=== PATIENT | female | born 1960 | race Caucasian/White ===

== ENCOUNTER 2019-07-27 15:07 | Emergency (ER) | payer MEDICARE ==
[2019-07-27 15:22] VITALS: BP 144/102
--- NOTE | 2019-07-27 15:36 | ED ---
Psychiatric Complaint - HPI Summary HPI Summary: The patient is a 59 y/o F presenting to [facility] with a chief complaint of depression with suicidality and plan gradually worsening. She reports that she is currently homeless because she has been unable to find a place to live other than the correction because she has been labeled as having schizophrenia and bipolar disorder, although she denies this. She also states suicidal ideation because she has been unable to keep her money that she receives from social security because she does not have a place to live. She has a plan to jump off a ridge into a waterfall. She is not in any pain. PMHx: questionable bipolar disorder and schizophrenia. Current every day smoker, weekly EtOH (three drinks today), no substance use. Medications reviewed. Allergies noted. - History Of Current Complaint Chief Complaint: EDPsychosocial Hx Obtained From: Patient Onset/Duration: Gradual Onset, Lasting Days, Still Present Timing: Days Severity Initially: Mild Severity Currently: Moderate Character: Depressed Aggravating Factor(s): Recent Stress - in personal life with finances and living situation Alleviating Factor(s): Nothing Related History: Positive For: Prior Psychiatric Issues - bipolar disorder, schizophrenia Has Suicidal: Reports: Thoughts, With A Plan - jumping off a ridge - Allergies/Home Medications Allergies/Adverse Reactions: Allergies Allergy/AdvReac Type Severity Reaction Status Date / Time cephalexin [From Keflex] Allergy Anaphylatic Verified 07/27/19 15:23 Shock PMH/Surg Hx/FS Hx/Imm Hx Endocrine/Hematology History: Denies: Hx Diabetes Cardiovascular History: Denies: Hx Hypercholesterolemia, Hx Hypertension Psychiatric History: Reports: Hx Schizophrenia, Hx Bipolar Disorder - Surgical History Surgical History: None Surgery Procedure, Year, and Place: none Infectious Disease History: No Infectious Disease History: Denies: Traveled Outside the [place] in Last 30 Days - Family History Known Family History: Positive: Other - RA in father Negative: Cardiac Disease, Hypertension, Diabetes - Social History Alcohol Use: Weekly Hx Substance Use: No Substance Use Type: Reports: None Hx Tobacco Use: Yes Smoking Status (MU): Current Every Day Smoker Review of Systems Negative: Fever Psychological: Other - suicidal ideation with a plan Positive: Depressed All Other Systems Reviewed And Are Negative: Yes Physical Exam - Summary Physical Exam Summary: VITAL SIGNS: Reviewed. GENERAL: Patient is a well-developed and nourished female who is lying comfortable in the stretcher. Patient is not in any acute respiratory distress. HEAD AND FACE: No signs of trauma. No ecchymosis, hematomas or skull depressions. No sinus tenderness. EYES: PERRLA, EOMI x 2, No injected conjunctiva, no nystagmus. EARS: Hearing grossly intact. Ear canals and tympanic membranes are within normal limits. MOUTH: Oropharynx within normal limits. NECK: Supple, trachea is midline, no adenopathy, no JVD, no carotid bruit, no c- spine tenderness, neck with full ROM. CHEST: Symmetric, no tenderness at palpation. LUNGS: Clear to auscultation bilaterally. No wheezing or crackles. CVS: Regular rate and rhythm, S1 and S2 present, no murmurs or gallops appreciated. ABDOMEN: Soft, non-tender. No signs of distention. No rebound, no guarding, and no masses palpated. Bowel sounds are normal. EXTREMITIES: FROM in all major joints, no edema, no cyanosis or clubbing. NEURO: Alert and oriented x 3. No acute neurological deficits. Speech is normal and follows commands. SKIN: Dry and warm. PSYCH: Depressed, quiet. States suicidal thoughts without a plan. No homicidal thoughts or plan. No signs of psychosis or pressure speech. No tangential speech. Triage Information Reviewed: Yes Vital Signs On Initial Exam: Initial Vitals Temp Pulse Resp BP Pulse Ox 98.3 F 88 16 144/102 98 07/27/19 15:15 07/27/19 15:15 07/27/19 15:15 07/27/19 15:15 07/27/19 15:15 Vital Signs Reviewed: Yes Procedures - Sedation Patient Received Moderate/Deep Sedation with Procedure: No Diagnostics - Vital Signs Vital Signs Temp Pulse Resp BP Pulse Ox 07/27/19 15:15 98.3 F 88 16 144/102 98 - Laboratory Result Diagrams: 07/27/19 16:06 07/27/19 16:06 Lab Statement: Any lab studies that have been ordered have been reviewed, and results considered in the medical decision making process. Re-Evaluation - Re-Evaluation First Eval Re-Evaluation Time: 16:00 Change: Unchanged Comment: Patient is medically clear for mental health evaluation. Course/Dx - Course Assessment/Plan: Patient is a 59 y/o F who has been diagnosed with schizophrenia and bipolar disorder with a chief complaint of suidicality with a plan for jumping off a ridge onset by her inability to find a home or settle her finances secondary to her diagnoses. Blood work w/o a significant abnormality. She is medically cleared. She is awaiting a MHE. Patient is hemodynamically stable and A+O x 3. Patient is signed out to Dr. Lane at shift change at 1900 on 07/27/19. - Differential Dx/Clinical Impression Provider Diagnosis: Depression Discharge ED - Sign-Out/Discharge Documenting (check all that apply): Sign-Out Patient Signing out patient TO: Jonnathan Lane - Patient is a sign-out to Dr. Jonnathan Lane MD, at 1900 on 07/27/2019, pending MHE and disposition. - Discharge Plan Referrals: Boyd ISAAC,Sonido Angelo [Primary Care Provider] - - Attestation Statements Document Initiated by Gio: Yes Documenting Scribe: Olivia Aden Provider For Whom Gio is Documenting (Include Credential): Dr. Nura Mukherjee MD Scribe Attestation: IOlivia scribed for Dr. Nura Mukherjee MD on 07/27/19 at 1810. Scribe Documentation Reviewed: Yes Provider Attestation: The documentation as recorded by the Olivia tabares accurately reflects the service I personally performed and the decisions made by me, Dr. Nura Mukherjee MD Status of Scribe Document: Ready
[2019-07-27 16:28] LABS: Urine Appearance Clear; Urine Bilirubin Negative (Negative); Urine Blood Negative (Negative); Urine Color Straw; Urine Glucose Negative (Negative); Urine Ketones Negative (Negative); Urine Nitrite Negative (Negative); Urine Protein Negative (Negative); Urine Specific Gravity 1.004 (1.010-1.030); Urine Urobilinogen Negative (Negative)
[2019-07-27 16:40] LABS: ALT 16 U/L (7-52); AST 24 U/L (13-39); Albumin 4.4 g/dL (3.2-5.2); Albumin/Globulin Ratio 1.8 (1-3); Alkaline Phosphatase 60 U/L (34-104); Anion Gap 7 mmol/L (2-11); BUN/Creatinine Ratio 26.5 (8-20); Blood Urea Nitrogen 18 mg/dL (6-24); CO2 Carbon Dioxide 26 mmol/L (22-32); Calcium 9.5 mg/dL (8.6-10.3); Chloride 103 mmol/L (101-111); EGFR African American 106.8 (>60); EGFR Non-African American 88.3 (>60); Globulin 2.4 g/dL (2-4); Glucose 96 mg/dL (70-100); Potassium 4.2 mmol/L (3.5-5.0); Sodium 136 mmol/L (135-145); Total Protein 6.8 g/dL (6.4-8.9)
[2019-07-27 16:46] LABS: ABS Eosinophils 0.1 10^3/ul (0-0.6); ABS Lymphocytes 1.8 10^3/ul (1.0-4.8); ABS Monocytes 0.6 10^3/ul (0-0.8); ABS Neutrophils 4.3 10^3/ul (1.5-7.7); Eosinophil % 1.7 %; Hematocrit 38 % (35-47); Hemoglobin 13.1 g/dL (12.0-16.0); Lymphocyte % 26.3 %; Mean Corpuscular HGB Conc 34 g/dL (31-36); Mean Corpuscular Hemoglobin 32 pg (27-31); Mean Corpuscular Volume 93 fL (80-97); Mean Platelet Volume 8.9 fL (7.4-10.4); Platelet Count 261 10^3/uL (150-450); Red Blood Count 4.12 10^6 /uL (3.70-4.87); Red Cell Distribution Width 14 % (10-15); White Blood Count 6.9 10^3/uL (3.5-10.8)
[2019-07-27 16:47] LABS: Acetaminophen < 15 mcg/mL; Alcohol < 10 mg/dL (<10); Salicylate < 2.50 mg/dL (<30)
[2019-07-27 16:52] LABS: Urine Benzodiazepine Screen None Detected (None Detect); Urine Opiates Screen None Detected (None Detect)
[2019-07-27 16:55] LABS: TSH (Thyroid Stimulating Horm) 1.11 mcIU/mL (0.34-5.60)
--- NOTE | 2019-07-27 19:11 | ED ---
Progress - Progress Note Progress Note: Pt is a sign out from Dr. Mukherjee at 19:00 on 07/27/19; shift change. Pt is pending a MH evaluation disposition. At 22:21, MH cap parts cutter reports that pts case was reviewed by Dr. Tobin who wants to put a MH hold on the pt. Re-Evaluation - Re-Evaluation First Eval Re-Evaluation Time: 16:00 Change: Unchanged Comment: Patient is medically clear for mental health evaluation. Course/Dx - Diagnoses Provider Diagnoses: Depression Discharge ED - Sign-Out/Discharge Documenting (check all that apply): Sign-Out Patient, Receiving Sign-Out Signing out patient TO: Tye Lugo - 07:00 on 07/28/19 Receiving patient FROM: Nura Mukherjee - 19:00 on 07/27/19 - Discharge Plan Condition: Stable Referrals: Boyd ISAAC,Sonido Angelo [Primary Care Provider] - - Billing Disposition and Condition Condition: STABLE - Attestation Statements Document Initiated by Scribe: Yes Documenting Scribe: No Oconnell Provider For Whom Scribe is Documenting (Include Credential): Jonnathan Lane MD Scribe Attestation: I, No Oconnell, scribed for Jonnathan Lane MD on 07/28/19 at 0717. Scribe Documentation Reviewed: Yes Provider Attestation: The documentation as recorded by the joibeNo accurately reflects the service I personally performed and the decisions made by me, Jonnathan Lane MD Status of Scribe Document: Viewed
--- NOTE | 2019-07-28 07:22 | ED ---
Progress - Progress Note Progress Note: This pt is a sign out to Dr. Lugo from Dr. Lane at shift change 0700 07/28 pending a MHE and disposition. - Consult/PCP Time Called: 20:27 Re-Evaluation - Re-Evaluation First Eval Re-Evaluation Time: 16:00 Change: Unchanged Comment: Patient is medically clear for mental health evaluation. Course/Dx - Course Course Of Treatment: This pt is a sign out to Dr. Lugo from Dr. Lane at shift change 0700 07/28/19 pending a MHE and disposition. Pt will be discharged home with a Dx of adjustment with distrubance and mood disconduct by Dr. Tobin. - Diagnoses Provider Diagnoses: Depression - Provider Notifications Discussed Care Of Patient With: Cole Tobin Time Discussed With Above Provider: 08:45 Instructed by Provider To: Other - discharge Discharge ED - Sign-Out/Discharge Documenting (check all that apply): Patient Departure - discharge - Discharge Plan Condition: Stable Disposition: HOME Referrals: Boyd ISAAC,Sonido Angelo [Primary Care Provider] - - Billing Disposition and Condition Condition: STABLE Disposition: Home - Attestation Statements Document Initiated by Scribe: Yes Documenting Scribe: Steven Serrano Provider For Whom Scribe is Documenting (Include Credential): Kun Lugo MD Scribe Attestation: Steven Massey, tiffanieed for Kun Lugo MD on 07/28/19 at 0849. Scribe Documentation Reviewed: Yes Provider Attestation: The documentation as recorded by the Steven tabares accurately reflects the service I personally performed and the decisions made by Kun trinidad MD Status of Scribe Document: Viewed Procedures - Sedation Patient Received Moderate/Deep Sedation with Procedure: No
== END 2019-07-28 09:00 | disposition home or self-care (01) ==
LOC: ED 15:07
DX: F32.9 Major depressive disorder, single episode, unspecified (principal); F20.9 Schizophrenia, unspecified; F17.210 Nicotine dependence, cigarettes, uncomplicated
CPT/HCPCS: 36415; 80053; 80307; 80320; 80329; 81003; 84443; 85025; 99285; G0480

== ENCOUNTER 2019-07-28 21:18 | Inpatient (IN) | payer MEDICARE ==
[2019-07-28 21:59] LABS: ABS Basophils 0.1 10^3/ul (0-0.2); ABS Eosinophils 0.1 10^3/ul (0-0.6); ABS Lymphocytes 2.3 10^3/ul (1.0-4.8); ABS Monocytes 0.3 10^3/ul (0-0.8); ABS Neutrophils 3.5 10^3/ul (1.5-7.7); Eosinophil % 1.3 %; Hematocrit 39 % (35-47); Hemoglobin 12.8 g/dL (12.0-16.0); Lymphocyte % 36.6 %; Mean Corpuscular HGB Conc 33 g/dL (31-36); Mean Corpuscular Hemoglobin 31 pg (27-31); Mean Corpuscular Volume 93 fL (80-97); Mean Platelet Volume 8.4 fL (7.4-10.4); Nucleated Red Blood Cells % 0.1; Platelet Count 269 10^3/uL (150-450); Red Blood Count 4.14 10^6 /uL (3.70-4.87); Red Cell Distribution Width 14 % (10-15); White Blood Count 6.2 10^3/uL (3.5-10.8)
[2019-07-28] MEDS ORDERED: LORazepam INJ* 2 MG/ML 1 ML VIAL IM ONE ×2 (22:04→22:28)
[2019-07-28] MEDS ORDERED: Haloperidol INJ IV/IM* 5 MG/ML AMP IM ONE (22:04)
[2019-07-28] MEDS ORDERED: diPHENhydraMINE IV* 50 MG/ML 1 ml VIAL (BENADRYL) IM ONE (22:04)
--- NOTE | 2019-07-28 22:08 | ED ---
Substance Abuse/Use - HPI Summary HPI Summary: LEVEL 5 CAVEAT: HPI LIMITED DUE TO ALTERED MENTAL STATUS. This patient is a 59 year old female brought in by law enforcement presenting to [facility] with a chief complaint of overdose. The patient states she drank a fifth of vodka. She is speaking on random subjects in the room. She states she took pills. - History Of Current Complaint Chief Complaint: EDOverdose Stated Complaint: DRUG OVERDOSE PER EMS Time Seen by Provider: 07/28/19 21:40 Hx Obtained From: Patient, Other: - Law enforcement - Allergies/Home Medications Allergies/Adverse Reactions: Allergies Allergy/AdvReac Type Severity Reaction Status Date / Time cephalexin [From Keflex] Allergy Anaphylatic Verified 07/27/19 15:23 Shock PMH/Surg Hx/FS Hx/Imm Hx Endocrine/Hematology History: Denies: Hx Diabetes Cardiovascular History: Denies: Hx Hypercholesterolemia, Hx Hypertension Psychiatric History: Reports: Hx Schizophrenia, Hx Bipolar Disorder - Surgical History Surgery Procedure, Year, and Place: none Infectious Disease History: No Infectious Disease History: Denies: Traveled Outside the US in Last 30 Days - Family History Known Family History: Positive: Other - RA in father Negative: Cardiac Disease, Hypertension, Diabetes - Social History Alcohol Use: Weekly Hx Substance Use: No Substance Use Type: Reports: None Hx Tobacco Use: Yes Smoking Status (MU): Current Every Day Smoker - Additional Comments History Additional Comments: LEVEL 5 CAVEAT: PMH LIMITED DUE TO ALTERED MENTAL STATUS. Review of Systems - ROS Summary Review of Systems Summary: LEVEL 5 CAVEAT: ROS LIMITED DUE TO ALTERED MENTAL STATUS. NK [No Home Medications Reported] 07/27/19 [History Confirmed 07/28/19] Neurological: Other - Patient intoxication All Other Systems Reviewed And Are Negative: No Physical Exam - Summary Physical Exam Summary: General: Well-developed, Well-nourished FEMALE. No acute distress. HEENT: Normocephalic, Atraumatic. Eyes: Conjuctiva normal, PERRL. Ears: TMs within normal limits. Nares: (-) discharge, (-) erythema. Oropharynx: Clear, mucous membranes moist, (-) exudates. Neck: Soft, FROM, (-) lymphadenopathy, (-) thyromegaly, (-) JVD. Cardiovascular: Normal sinus rhythm, (-) murmur. Lungs: Clear to auscultation bilaterally (-) wheezes, (-) rales, (-) rhonchi. Abdomen: Soft, non-tender, non-distended, (-) organomegaly, normal bowel sounds. Back: (-) CVA tenderness Extremities: No edema. Skin: Warm, dry, (-) rash. Neuro: Uncooperative. Psychiatric: Uncooperative. Triage Information Reviewed: Yes Vital Signs On Initial Exam: Initial Vitals Temp Pulse Resp BP Pulse Ox 97 F 86 16 117/72 98 07/28/19 21:26 07/28/19 21:26 07/28/19 21:26 07/28/19 21:26 07/28/19 21:26 Vital Signs Reviewed: Yes Diagnostics - Vital Signs Vital Signs Temp Pulse Resp BP Pulse Ox 07/28/19 21:26 97 F 86 16 117/72 98 - Laboratory Lab Results: Lab Results 07/28/19 Range/Units 21:48 WBC 6.2 (3.5-10.8) 10^3/uL RBC 4.14 (3.70-4.87) 10^6 /uL Hgb 12.8 (12.0-16.0) g/dL Hct 39 (35-47) % MCV 93 (80-97) fL MCH 31 (27-31) pg MCHC 33 (31-36) g/dL RDW 14 (10-15) % Plt Count 269 (150-450) 10^3/uL MPV 8.4 (7.4-10.4) fL Neut % (Auto) 56.2 % Lymph % (Auto) 36.6 % [place] % (Auto) 5.1 % Eos % (Auto) 1.3 % Baso % (Auto) 0.8 % Absolute Neuts (auto) 3.5 (1.5-7.7) 10^3/ul Absolute Lymphs (auto) 2.3 (1.0-4.8) 10^3/ul Absolute Monos (auto) 0.3 (0-0.8) 10^3/ul Absolute Eos (auto) 0.1 (0-0.6) 10^3/ul Absolute Basos (auto) 0.1 (0-0.2) 10^3/ul Absolute Nucleated RBC 0.0 10^3/ul Nucleated RBC % 0.1 Result Diagrams: 07/28/19 21:48 07/28/19 21:48 Lab Statement: Any lab studies that have been ordered have been reviewed, and results considered in the medical decision making process. - EKG 2258 Cardiac Rate: NL - 82 BPM EKG Rhythm: Sinus Rhythm Summary of EKG Findings: No STEMI. ED Physician has reviewed and interpreted this EKG. Re-Evaluation - Re-Evaluation First Eval Re-Evaluation Time: 07:00 Change: Unchanged Comment: valproic acid levels remain in the 260s Course/Dx - Course Course Of Treatment: This patient is a 59 year old female brought in by law enforcement on a 941 presenting to [facility] with a chief complaint of overdose. This patient will be signed out to Dr. Lugo pending E at shift change 0700. - Diagnoses Provider Diagnoses: Overdose of anticonvulsant, Alcohol intoxication Discharge ED - Sign-Out/Discharge Documenting (check all that apply): Sign-Out Patient Signing out patient TO: Tye Lugo - Discharge Plan Condition: Stable Disposition: ADMITTED TO [facility] - Billing Disposition and Condition Condition: STABLE Disposition: Admitted to [facility] - Attestation Statements Document Initiated by Scribe: Yes Documenting Scribe: Sonido Lin Provider For Whom Robinibe is Documenting (Include Credential): Loren Forrester MD Scribe Attestation: ISonido, scribed for Loren Forrester MD on 07/29/19 at 1933. Scribe Documentation Reviewed: Yes Provider Attestation: The documentation as recorded by the Sonido tabares accurately reflects the service I personally performed and the decisions made by me, Loren Forrester MD Status of Scribe Document: Viewed - Assessment for Patient Restraint Evaluation of the Patient's Immediate Situation: Patient is deemed dangerous to herself and to others, unable to deescalate. Patient's Reaction to Intervention: Agitation Patient's Medication and Behavioral Condition: Patient is moderately agitation. Patient received, Benadryl, Haldol, and Ativan. Evaluate Need for Continued Restraint: Continue
[2019-07-28 22:11] LABS: ALT 18 U/L (7-52); AST 26 U/L (13-39); Albumin 4.4 g/dL (3.2-5.2); Albumin/Globulin Ratio 1.9 (1-3); Alkaline Phosphatase 57 U/L (34-104); Anion Gap 7 mmol/L (2-11); BUN/Creatinine Ratio 17.4 (8-20); Blood Urea Nitrogen 12 mg/dL (6-24); CO2 Carbon Dioxide 29 mmol/L (22-32); Calcium 9.2 mg/dL (8.6-10.3); Chloride 106 mmol/L (101-111); EGFR Non-African American 86.8 (>60); Globulin 2.3 g/dL (2-4); Glucose 89 mg/dL (70-100); Potassium 4.1 mmol/L (3.5-5.0); Sodium 142 mmol/L (135-145); Total Protein 6.7 g/dL (6.4-8.9)
[2019-07-28 22:17] LABS: Acetaminophen < 15 mcg/mL; Alcohol 207 mg/dL (<10); Salicylate < 2.50 mg/dL (<30)
[2019-07-28 22:23] LABS: Urine Appearance Cloudy; Urine Bilirubin Negative (Negative); Urine Blood Negative (Negative); Urine Color Yellow; Urine Glucose Negative (Negative); Urine Ketones Negative (Negative); Urine Nitrite Negative (Negative); Urine Protein Negative (Negative); Urine Specific Gravity 1.006 (1.010-1.030); Urine Urobilinogen Negative (Negative)
[2019-07-28] MEDS ORDERED: Lorazepam PYXIS KEY PRN (22:28)
[2019-07-28 22:31] LABS: Urine Benzodiazepine Screen None Detected (None Detect); Urine Opiates Screen None Detected (None Detect)
[2019-07-28 22:32] LABS: TSH (Thyroid Stimulating Horm) 0.84 mcIU/mL (0.34-5.60)
[2019-07-28] MEDS: NS 0.9% 1000 ML** 1,000 ML IV ONE (23:47)
[2019-07-29] MEDS: NS 0.9% 1000 ML** 1,000 ML IV ONE (01:24)
[2019-07-29] MEDS ORDERED: NS 0.9% 1000 ML** 1,000 ML IV ONE (03:09)
--- NOTE | 2019-07-29 07:18 | ED ---
Progress - Progress Note Progress Note: This patient was signed out from Dr. Forrester upon shift change on 07/29/19 at 07: 00, awaiting MHE and pending disposition. Re-Evaluation - Re-Evaluation First Eval Re-Evaluation Time: 07:00 Change: Unchanged Comment: valproic acid levels remain in the 260s Course/Dx - Course Course Of Treatment: Ms. Dumont was awake and communicating effectively when I came on shift. She was awaiting a repeatvalproic acid level. It returned slightly higher at 263. I added an ammonia level (83) and contacted the hospitalist, Dr. Shepherd, for admission. - Diagnoses Provider Diagnoses: Overdose of anticonvulsant, Alcohol intoxication - Provider Notifications Discussed Care Of Patient With: Shaan Shepherd Time Discussed With Above Provider: 07:23 Instructed by Provider To: Other - Dr. Shepherd, hospitalist, agrees to admit patient - Critical Care Time Critical Care Time: 30-74 min Discharge ED - Sign-Out/Discharge Documenting (check all that apply): Patient Departure - Admit - Discharge Plan Condition: Stable Disposition: ADMITTED TO [facility] - Billing Disposition and Condition Condition: STABLE Disposition: Admitted to [facility] - Attestation Statements Document Initiated by Scribe: Yes Documenting Scribe: Archana Hercules Provider For Whom Robinibfarrukh is Documenting (Include Credential): Tye Lugo MD Scribe Attestation: I, Archana Hercules, scribed for Tye Lugo MD on 07/29/19 at 1148. Scribe Documentation Reviewed: Yes Provider Attestation: The documentation as recorded by the scribArchana chadwick accurately reflects the service I personally performed and the decisions made by me, Tye Lugo MD Status of Scribe Document: Viewed Procedures - Sedation Patient Received Moderate/Deep Sedation with Procedure: No
[2019-07-29] MEDS: D5W 1/2 NS KCl 20 Meq 1000 ML* 1,000 ML IV SCH ×2 (09:15→16:34)
--- NOTE | 2019-07-29 11:28 | HP ---
HOSPITAL MEDICINE HISTORY AND PHYSICAL: DATE OF ADMISSION: 07/29/19 PRIMARY CARE PHYSICIAN: None. ATTENDING PHYSICIAN: Dr. Shaan Shepherd * (dictation provided by Marisol Yeboah NP). CHIEF COMPLAINT: Valproic acid overdose. HISTORY OF PRESENT ILLNESS: Ms. Dumont is a 59-year-old female with no known past medical history, who presents to the hospital today after a overdose of valproic acid in a suicide attempt. Ms. Dumont is alert and oriented, though she appears to be resistant and reluctant to answer questions today. She confirms that she took an overdose of valproic acid and had confirmed to the emergency room providers that this was in suicide attempt. The patient states that she is from [place], and when asked why she is in [place], she states "it is very complicated." When asked if she lives alone or with someone else, she says "I don't have a home." The patient is unable to tell me exactly how she got to the emergency room but states that she was found by someone who called the police. She denies any past medical history. Per her report today, she does not normally take valproic acid, though it had been prescribed for her. She is unclear whether or not this is an extended release or not. I did review the [facility] record and no files were found there for the patient or she did not provide consent. The case was discussed with her nephew Jeremy who indicated that the patient has paranoid schizophrenia and has been homeless for some time. He was not able to provide further information. In the emergency room, the patient had labs which showed that her valproic acid level was 241.0 and her serum alcohol level was 207, no other substances were detected in the toxicology screen. Her urine shows no evidence of infection. Her complete metabolic panel was normal except for an elevated ammonia at 78 and her CBC is also normal. Her vital signs show hypotension. Her blood pressure has been as low as 70s, but is currently 99/48 after receiving intravenous fluids. She is not tachycardic, she is not febrile. PAST MEDICAL HISTORY: 1. Paranoid schizophrenia. MEDICATIONS: None per the patient's report, although she does confirm that she has been prescribed valproic acid in the past. ALLERGIES: CEPHALEXIN. FAMILY HISTORY: She reports her mother related to an accident in the hospital and father related to complications of rheumatoid arthritis. SOCIAL HISTORY: The patient said she is a smoker. Clearly, she does confirm alcohol use. She seems to be stating today that she is homeless and originally from the [facility]. REVIEW OF SYSTEMS: A 14-point review of systems was completed with Ms. Dumont , and she has no positive review of systems and only complains of being tired. PHYSICAL EXAMINATION GENERAL: Ms. Dumont is lying in the bed, she is in no acute distress. VITAL SIGNS: Temperature 97.7, pulse rate 86, respiratory rate 16, O2 saturation 93% on room air, and blood pressure 99/48. LUNGS: Clear to auscultation bilaterally with no accessory muscle use and good aeration. HEART: S1, S2. No murmur, rub, or gallop and regular. ABDOMEN: Soft, nontender with bowel sounds positive x4. EXTREMITIES: No cyanosis or edema. NEURO: She is alert. She is oriented x3. She moves all extremities equally. SKIN: Intact. DIAGNOSTIC STUDIES/LAB DATA: WBC 6.2, hemoglobin 12.8, hematocrit 39, platelet count 269. Sodium 142, potassium 4.1, chloride 106, serum bicarbonate 29, BUN 12, creatinine 0.69, glucose 89, ammonia 78. AST 26, ALT 18, alk phos 57, total bilirubin 0.40. TSH 0.84. Urine shows no evidence of infection. Toxicology shows valproic acid level on arrival at 241.0 and at 6 a.m., it was 263.0. Her serum alcohol level was 207. EKG shows sinus rhythm with a heart rate in the 80s and there is no evidence of ischemia. ASSESSMENT: Ms. Dumont is a 59-year-old female with no known past medical history, who presents today to the hospital after an overdose of valproic acid with suicidal attempt. Our plans are for observation in the hospital due to elevated valproic acid levels and then anticipate discharge to mental health unit for further care. Our plans are as follows: 1. Valproic acid overdose: Plan to continue to monitor her valproic acid levels q.4 hours per the direction of the poison control team. Otherwise, she will have supportive care with intravenous fluids for hypotension. We will continue to monitor the ammonia level with a repeat check in 4 hours and then a repeat check of her liver enzymes and ammonia level in the a.m. She is alert and oriented x3. She has no neurological deficits. CT brain is not indicated. 2. Suicide attempt. Anticipate the patient being discharged to mental health unit at the completion of this observation stay. 3. Question homelessness. Plan to consult social workers to help coordinate any available services in the community. 4. DVT prophylaxis with early mobility. 5. Code status is full code. TIME SPENT: Approximately 60 minutes was spent on the admission of this patient ; more than half of the time was spent with the patient at the bedside reviewing the events leading up to this hospitalization, performing the physical examination, and reviewing my plan of care. MARISOL YEBOAH NP [id number]/CPS #: [id number] LUDMILA
[2019-07-29] MEDS ORDERED: Ondansetron INJ* 2 MG/ML VIAL IV PRN (17:36)
[2019-07-29] MEDS ORDERED: levOCARNitine* 6 GM in NS 0.9% 1000 ML** 1,000 ML IV ONE (18:00)
[2019-07-29] MEDS: LEVOCARNITINE IV SCH (21:45)
[2019-07-29] MEDS: NS 0.9% IV SCH (21:45)
[2019-07-30] MEDS ORDERED: LEVOCARNITINE IV SCH ×2 (02:00→19:00)
[2019-07-30] MEDS ORDERED: NS 0.9% IV SCH ×2 (02:00→19:00)
[2019-07-30] MEDS: LEVOCARNITINE IV SCH ×3 (03:27→10:39)
[2019-07-30] MEDS: NS 0.9% IV SCH ×3 (03:27→10:39)
[2019-07-30] MEDS: D5W 1/2 NS KCl 20 Meq 1000 ML* 1,000 ML IV SCH ×2 (05:21→12:46)
[2019-07-30 06:22] LABS: Albumin 3.6 g/dL (3.2-5.2); BUN/Creatinine Ratio 14.1 (8-20); Calcium 8.4 mg/dL (8.6-10.3); EGFR African American 114.5 (>60); EGFR Non-African American 94.7 (>60); Globulin 1.8 g/dL (2-4); Potassium 3.9 mmol/L (3.5-5.0); Total Bilirubin 0.6 mg/dL (0.2-1.0); Total Protein 5.4 g/dL (6.4-8.9)
--- NOTE | 2019-07-30 07:01 | PN ---
Progress Note - Progress Note Date of Service: 07/29/19 Note: Discussed case with Poison Control Center through the evening. Given dramatically elevated ammonia, plan to start l-carnitine. CT Brain negative for change with no evidence of cerebral edema. Patient awake and oriented x 3. Plan to continue q6h ammonia and valproic acid checks.
--- NOTE | 2019-07-30 08:18 | PN ---
Subjective Date of Service: 07/30/19 Interval History: HD2 on 07/30 59F PMH paranoid schizophrenic, homeless who presented to ED on 07/29 with elevated blood EtOH and intentional overdose on Valproic acid c/b elevated ammonia Overnight VSS Labs: Ammonia and valproic trending down, Cr stable, LFTs remarkably stable This morning, withdrawn on exam but denies pain, did not eat much breakfast a bit of oatmeal. Oriented to self, place (hospital) but unsure of the city, knows the year, knows she drank EtOH and took depakote but doesn't remember much and declines to discuss with me the nature of the event. No other issues, polite, willing to meet with mental health. Given update on repeat labs and fluids, encourage trials of sips and food. Objective Active Medications: Potassium Chloride/Dextrose (D5w 1/2 Ns Kcl 20 Meq 1000 Ml*) 1,000 mls @ 150 mls/hr IV PER RATE JENNIE Last Admin: 07/30/19 05:21 Dose: 150 mls/hr Levocarnitine 1 gm/ Sodium (Chloride) 255 mls @ 510 mls/hr IV Q4H [facility]; Protocol Last Admin: 07/30/19 05:20 Dose: 510 mls/hr Ondansetron HCl (Zofran Inj*) 4 mg IV Q6H PRN PRN Reason: NAUSEA Vital Signs - 8 hr 07/30/19 07/30/19 03:46 07:30 Temperature 98.4 F 99.2 F Pulse Rate 72 63 Respiratory 16 20 Rate Blood Pressure 108/52 110/59 (mmHg) O2 Sat by Pulse 96 97 Oximetry Oxygen Devices in Use Now: None Appearance: Disheveled but no apparent distress Eyes: No Scleral Icterus, PERRLA Ears/Nose/Mouth/Throat: NL Teeth, Lips, Gums, - - Dry MM Neck: NL Appearance and Movements; NL JVP, Trachea Midline Respiratory: Symmetrical Chest Expansion and Respiratory Effort, Clear to Auscultation Cardiovascular: NL Sounds; No Murmurs; No JVD, RRR Abdominal: NL Sounds; No Tenderness; No Distention, No Hepatosplenomegaly, - - No asterixis Lymphatic: No Cervical Adenopathy Extremities: No Edema Skin: No Rash or Ulcers Neurological: - - Oriented to self, rough place (hospital) rough event (overdose ) 2-3 Result Diagrams: 07/28/19 21:48 07/30/19 05:45 Additional Lab and Data: Assess/Plan/Problems-Billing Assessment: 59F H paranoid schizophrenic, homeless who presented to ED on 07/29 with elevated blood EtOH and intentional overdose on Valproic acid c/b elevated ammonia - Patient Problems (1) Valproic acid toxicity Current Visit: Yes Status: Acute Code(s): T42.6X1A - POISONING BY OTH ANTIEPLPTC AND SED-HYPNTC DRUGS, ACC, INIT SNOMED Code(s): 445972586 Comment: - Poison control following. Level decreasing - Valproic acid can cause L Carnitie def, now on supplementation which will help with ammonia (2) Serum ammonia increased Current Visit: Yes Status: Acute Code(s): E72.20 - DISORDER OF UREA CYCLE METABOLISM, UNSPECIFIED SNOMED Code(s): 7438861 Comment: - Product of VA toxicity - AOX3, continue monitoring - Could consider lactulose if symptomatic but no need as not showing signs of HE at this time, no hepatoxicity, continue L carnitine (3) Overdose Current Visit: Yes Status: Acute Code(s): T50.901A - POISONING BY UNSP DRUG/ MEDS/BIOL SUBST, ACCIDENTAL, INIT SNOMED Code(s): 75492363 Comment: - Hx of schizophrenia per collateral from nephew on admission - 1:1 continue, d/c to mental health unit when medically clear and VA levels return to safe levels (4) Schizophrenia Current Visit: Yes Status: Acute Code(s): F20.9 - SCHIZOPHRENIA, UNSPECIFIED SNOMED Code(s): 45371350 Comment: - As per above, unclear what medications patient taking prior to hospitlization (5) Alcohol abuse Current Visit: Yes Status: Acute Code(s): F10.10 - ALCOHOL ABUSE, UNCOMPLICATED SNOMED Code(s): 14640655 Comment: - No signs of w/drawal continue to monitor - PRN ativan for anxiety (6) DVT prophylaxis Current Visit: Yes Status: Acute Code(s): Z29.9 - ENCOUNTER FOR PROPHYLACTIC MEASURES, UNSPECIFIED SNOMED Code(s): 146939248 Comment: - Low risk, currently ambulatory (7) Full code status Current Visit: Yes Status: Acute Code(s): Z78.9 - OTHER SPECIFIED HEALTH STATUS SNOMED Code(s): 477190070 Status and Disposition: Once medically clear and levels safe will d/c to , placed psych consult today
[2019-07-30] MEDS ORDERED: LORazepam TAB(*) 0.5 MG PO PRN (10:55)
--- NOTE | 2019-07-30 16:53 | CONSULT ---
Identification - Patient Identification Reason for Psychiatric Consultation: Other - Intentional overdose on Depakote pills in a suicide attempt -: Patient is a 59 year old, F admitted on 07/29/19. - MHU Identification Employment Status: Disabled Prior Psychiatric Diagnosis: Schizophrenia, chronicm paranoid type Arrived to Hospital Via: Law Enforcement History - Objective HPI: '"I don't want to get into that right now!" The patient is uncooperative with the interview. This note is based on a meeting with the patient (that I ended after 10 minutes as she became agitated and started sobbing and crying loudly), review of admission data, H&P, and collateral info from Dr. Davison. She is a 59 year-old, mentally disabled female who was brought in by ambulance and [employer], from the community, for treatment after an intentional overdose on divalproex pills in an suicide attempt. Smita reports that the diagnosis of schizophrenia has "placed her in a box and has ruined her life." "This is all I am for [place], a schizophrenic!" She relates that she came to [place] from [place] about 2 days prior, and that she did not have a place to stay or food to eat and she decided to end her life. She had outpatient care at [facility]. She refuses to provide more details about number of psychiatric admissions, date of most recent one, medication regimen or names of her provider. Collateral info from her nephew Jeremy who indicated that the patient has paranoid schizophrenia and has been homeless for some time. Smita relates having a brother who lives in [place] but their relationship is strained. She has never been , has no children and no history of employment. Past Medical History: See H&P dictated by Marisol Yeboah NP on 07/29/19. Exam Appearance: Healthy Appearing, Other - She appears older than her stated age, Hygiene: Normal Grooming: Disheveled Psychomotor Activities: Abnormal-Increased Exhibits Abnormal Movement: No Attitude and Relatedness: Irritable Eye Contact: Poor - Speech Quality: Unpressured Patient's Decription of Mood: "Upset" Observed Affect: Labile Affect Consistent with: Dysphoria Patient's Thought Process: Disorganized Thought Content: Yes Paranoid Ideation, No Passive Wish, No Suicidal Planning, No Homicidal Ideation Experiencing Hallucinations: No, Sensorium is Clear Type of Hallucinations: Visual: No, Auditory: No, Command: No Level of Consciousness: Agitated Orientation: No Orientated to Time, No Orientated to Place, No Orientated to Person Impulse Control: Poor Insight and Judgement: Impaired Impression - Impression Clinical Impression: A chronically mentally disabled female who was brought in by [facility] and emergency services after an intentional overdose on her prescribed Depakote pills in a suicide attempt. On interview she verbalizes with paranoid and persecutory delusions and ideas of reference. She is vehemently opposed to a voluntary psychiatric admission but does not have any less restrictive alternative. Given the seriousness of her overdose, her complete lack of psychosocial supports in this community or elsewhere, an emergency admission is warranted to keep her safe. Inpatient DSM-V Dx: F20.0 Merits Inpatient Hospitalization: Yes Plan - Treatment Plan Treatment Plan: Admit to [facility] on 15 min check, full code status, legal status is emergency. Medications: Current Medications Potassium Chloride/Dextrose (D5w 1/2 Ns Kcl 20 Meq 1000 Ml*) 1,000 mls @ 150 mls/hr IV PER RATE [facility] Last Admin: 07/30/19 12:46 Dose: 150 mls/hr Levocarnitine 1 gm/ Sodium (Chloride) 255 mls @ 510 mls/hr IV Q8H JENNIE; Protocol Lorazepam (Ativan Tab(*)) 0.5 mg PO Q4H PRN PRN Reason: ANXIETY Ondansetron HCl (Zofran Inj*) 4 mg IV Q6H PRN PRN Reason: NAUSEA - Discharge Plan Discharge Plan: Outpatient Follow Up Outpatient Program: [facility]
[2019-07-30] MEDS ORDERED: Acetaminophen TAB* 325 MG PO PRN (17:29)
[2019-07-30] MEDS ORDERED: Al Hydrox/Mg Hydrox/Simet LIQ* 30 ML UDC PO PRN (17:29)
--- NOTE | 2019-07-30 18:47 | DS ---
CC: Dr. Sonido Nix * DISCHARGE SUMMARY: DATE OF ADMISSION: 07/29/19 DATE OF DISCHARGE: 07/30/19 PRIMARY CARE PROVIDER: Dr. Sonido Nix. DISPOSITION AT THE TIME OF DISCHARGE: Stable to be discharged to the mental health unit on an involuntary status at [facility] secondary to her mental health disease. PRIMARY DIAGNOSES: 1. Intentional overdose on valproic acid. 2. Valproic acid toxicity. 3. Hyperammonemia associated with toxicity from valproic acid. 4. Elevated alcohol blood serum level. SECONDARY DIAGNOSES: Schizophrenia and unknown otherwise mental health disease with poor insight. Of note, this is an involuntary admission to the psychiatric facility as determined by the psychiatrist on staff, Dr. Kevin Dove, and Medicine also agrees that the patient does not have the capacity to make decisions for herself and is a potential risk to herself or others. MEDICATIONS AT THE TIME OF DISCHARGE: P.r.n. ondansetron and whatever is to be determined by the mental health team upon psychiatric admission. Medications prior to this admission are unknown, but assumed to be valproic acid given the patient's overdose. HISTORY OF PRESENT ILLNESS AND HOSPITAL COURSE: The patient is a 59-year-old female with unknown past medical history, but according to collateral obtained from her nephew on admission, she has a history of diagnosed and untreated schizophrenia. She also suffers from homelessness. The patient is a very guarded historian and does not give up much, but she came in with altered mental status, was found to have a blood alcohol level of 207 and valproic acid level of 217 and ammonia elevated at 668 on admission at 07/29/19. She had no other acute laboratory findings and, thankfully, no elevated LFTs. She was admitted to the medicine unit and her hospital course by problem is as follows: 1. Valproic acid toxicity. The patient had slightly altered mental status, but had no evidence of seizures, myoclonic jerks, or liver failure. She did have hyperammonemia associated with her valproic acid level. She was given L- carnitine and given fluids. Her valproic acid level fell from 217 to 126 by at 4 a.m. and in concert with Poison Control Center who followed on this case, they felt that she was stable to sign off and she had no evidence of liver damage or other sequelae of existing toxic valproic acid levels. 2. Hyperammonemia. This is associated with valproic acid, which depletes L- carnitine leading to inborn hyperammonemia state. The patient was treated with L- carnitine and ammonia level fell from 668 to 80 by the day of discharge. She has no asterixis, she has no hepatic encephalopathy, and she has no altered mental status by the day of discharge. As per below, Medicine will continue to consult while the patient is admitted to inpatient psychiatric. 3. Intentional overdose with underlying schizophrenia. The patient is a guarded historian and by hospital day 2, she is feeling rather anxious and not particularly participatory in her care. Secondary to this, Psychiatry was asked to see her and they felt that she was appropriate for involuntary admission. She is medically cleared from [facility] Control [facility] as well as from the internal medicine team, although we will continue to follow. This is an involuntary admission as she is an acute risk to herself or others and this decision was made in concert with Psychiatry. 4. Elevated alcohol level. The patient is a guarded historian about her alcohol use. She says she is not a daily alcohol user. She has had no signs or symptoms of alcohol withdrawal in over 24 hours of monitoring her and her alcohol level was elevated at 207. She is tolerating diet and has received IV fluids. She reports that she is an infrequent and not daily drinker, and she has no signs or symptoms of chronic daily alcohol abuse in her labs alone. 5. Homelessness. The patient reports no stable living situation and according to her nephew on collateral, he reports that the patient herself is homeless. Further Social Work consultation will be made on her ultimate arrival to the psychiatric facility. LABS AND STUDIES DONE DURING THIS HOSPITALIZATION: Labs on the day of discharge , 07/30/19: Her BMP is wholly unremarkable with the exception of elevated ammonia; last level at 80. Valproic acid level is down from critical level to high normal at 126; acceptable levels are between 50 and 100. She is asymptomatic. Imaging done included a brain CT, which showed no acute intracranial pathology and an EKG was done, which showed no QT prolongation and normal sinus rhythm with no signs of acute ischemia. CONSULTATIONS DURING THIS HOSPITALIZATION: Included Psychiatry who agrees that the patient is stable for admission. ITEMS TO FOLLOW UP ON STATUS POST DISCHARGE: 1. Valproic acid toxicity. Medicine will continue to consult on this patient while in the psychiatric unit where she will receive more appropriate care given her underlying diagnosis of schizophrenia and what led her to intentional overdose. Her valproic acid levels are at safe levels. She is alert and oriented x2 to 3, unclear of her baseline as she is largely nonparticipatory in our interview of her and she has a nonfocal neurologic exam. We will request for labs in our consultations and place the orders ourselves and sign off when appropriate. We expect to leave the consultation on 07/31/19 with followup labs as to be ordered and monitored by us. 2. Mental health diagnosis. Again, a vague history of schizophrenia. This can be further categorized and appropriate housing can be arranged for the patient from a psychiatric standpoint and we appreciate the help of our colleagues in this nature. The patient is not currently agreeable with the plan of care, although with consultation with Psychiatry, we feel that she is appropriate for involuntary admission to the psychiatric unit for further stabilization with Medicine consulting until ammonia and valproic acid levels have reached completely normal state, which we anticipate they will in the next 24 to 48 hours. She is stable for discharge and cleared from the medical standpoint as she is no longer with any critical levels, is alert and oriented, tolerating diet, voiding freely, and ambulating about the unit. If there are any questions about the care of this patient, please do not hesitate to contact me directly, my cellphone is [phone]. Mental health team will not need to place a medicine consult. We will automatically add it to our list of consults for 07/31/19. TIME SPENT: Forty-five minutes were spent on the planning of this discharge with over half of that spent directly at the bedside of the patient. [id number]/[facility] #: [id number] LUDMILA
[2019-07-30 19:26] VITALS: BP 125/54
[2019-07-31] MEDS ORDERED: Vitamin THERAPEUTIC TAB PO SCH (09:00)
== END 2019-07-30 19:00 | DRG 918 ==
LOC: ED 21:18 → MEDTELE 07-29 07:48
PROVIDERS: ADMIT Internal Medicine; ATTEND Internal Medicine
DX: T42.6X2A Poisoning by other antiepileptic and sedative-hypnotic drugs, intentional self-harm, initial encounter (principal); E72.20 Disorder of urea cycle metabolism, unspecified; F20.0 Paranoid schizophrenia; Y90.7 Blood alcohol level of 200-239 mg/100 ml; F10.10 Alcohol abuse, uncomplicated; F17.210 Nicotine dependence, cigarettes, uncomplicated; Y92.9 Unspecified place or not applicable; Z59.0 Homelessness; Z88.8 Allergy status to other drugs, medicaments and biological substances; Z82.61 Family history of arthritis
CPT/HCPCS: 36415; 70450; 80053; 80164; 80307; 80320; 80329; 81003; 82140; 84443; 85025; 93005; 99285; G0480; J1955

== ENCOUNTER 2019-07-30 18:26 | Inpatient (IN) | payer MEDICARE ==
[2019-07-30] MEDS ORDERED: Acetaminophen TAB* 325 MG PO PRN (19:07)
[2019-07-30] MEDS ORDERED: Al Hydrox/Mg Hydrox/Simet LIQ* 30 ML UDC PO PRN (19:07)
[2019-07-31 08:13] LABS: HDL Cholesterol 68.8 mg/dL
[2019-07-31 08:22] VITALS: BP 114/71
[2019-07-31] MEDS: Vitamin THERAPEUTIC TAB PO SCH (11:10)
[2019-07-31] MEDS ORDERED: ARIPiprazole TAB* 5 MG PO SCH (12:00)
--- NOTE | 2019-07-31 13:52 | PN ---
Subjective - Subjective Date of Service: 07/31/19 Service Type: 09641 Hosp care 35 min high complexity Subjective: Chiquita states she is homeless. She left [facility] because she didn't have a place to live "and [facility] won't help me!" She states she's an exception to their rules but is unable or unwilling to explain exactly why that is true. She has a brother named Jeremy and a [id number] named Morgan who might provide collateral, but their numbers are difficult to obtain. Chiquita asserts that all of these problems could be solved by Jeremy seeing that her SSD income is in an account that he could observe. She is upset that her family will not "take me in." She was taking Depakote "1 to 2 a day." She states she's been diagnosed with schizophrenia because her mother was diagnosed with schizophrenia. Her mother is the only one in the family who has a mental illness, so Chiquita thinks it's a flaw to have diagnosed her with the same thing as her mother. 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 She also said something to her [id number] 30 years ago that caused estrangement in the family. Her history is murky, but she states she was a personal injury paralegal for 35 years, a english adjunct faculty for some time, and an actress for 10 years. She states she is homeless because she "got behind the 8 ball" and had to pay more money and is behind more than $400 in rent for single rooms she rented. She gives a narrative of living with college guys who she didn't fit in with and then with an -Indian woman who wouldn't tolerate racist remarks she may or may not have made. Her information is scattered and incomplete. It seems that all of this stemmed from the burst appendix 30 years ago and the doctors trying to hide the fact that they didn't care for her. In fact, while she can seem reasonable for some time, she deviates into delusional and bizarre statements. Objective - General Observations Appearance: Disheveled Appears Stated Age: No - older Stature: WNL Posture: Slumped Eye Contact: Average Behavior/Activity: Peculiar, Agitated - Interaction Observations Attitude Towards Examiner: Cooperative, Defensive Stated Mood: Dysphoric, Anxious Affect: Labile Speech Pattern/Tone: Clear, Rambling, Loud Volume Thought Process: Disorganized Perception: WNL Thought Content: Preoccupation/Ruminations Hallucination Type: Denies Delusion Type: Denies, Persecution - Cognitive Function Orientation: A&O x 4 Level of Consciousness: Awake, Alert, Appropriate Cognition: Impaired Cognition, Impaired Attention/Concentration Estimated Intelligence: Normal Insight: Difficulty Acknowledging Presence of Psyciatric Problems Judgment Within Normal Limits: No Ability to Make Reasonable Decisions: Serverely Impaired - Medication Compliance Cooperative with Inpatient Medication Regimen: Yes - Group Participation Participates in Group Activities: No Assessment - Assessment Merits Inpatient Hospitalization: For Immediate Safety Inpatient DSM-V Dx: F20.0 Clinical Impression: Chiquita is a 59-year-old woman who comes from [facility] because she didn't have anywhere else to go, she says. She is delusional and angry and upset. Plan - Plan Treatment Plan: Name: CHIQUITA PARNELL Birthdate: 1960 [id number] 07/31/19 Chiquita is delusional and anxious. She recently overdosed on Depakote. We will try to address her delusional symptoms with Abilify and will start with 5 mg and bedtime. Continued Medication Management: Different Medication Medications: Current Medications Acetaminophen (Tylenol Tab*) 650 mg PO Q4H PRN PRN Reason: for pain; or Temp >101 F Al Hydrox/Mg Hydrox/Simethicone (Maalox Plus*) 30 ml PO Q4H PRN PRN Reason: INDIGESTION Aripiprazole (Abilify Tab*) 5 mg PO BEDTIME JENNIE Multivitamins (Theragran Tab*) 1 tab PO DAILY JENNIE Last Admin: 07/31/19 11:10 Dose: 1 tab
[2019-08-01] MEDS: Vitamin THERAPEUTIC TAB PO SCH (10:03)
--- NOTE | 2019-08-01 12:33 | HP ---
HISTORY AND PHYSICAL: DATE OF ADMISSION: 07/30/19 PROVIDER: Lita Matute NP, in Psychiatry SUPERVISING PHYSICIAN: Cole Tobin MD * (DICTATED BY LITA MATUTE NP ) JUSTIFICATION FOR ADMISSION: The patient is in need of 24-hour supervision and care secondary to gross disorganization and overdose on Depakote. CHIEF COMPLAINT: "DSS won't help me." HISTORY OF PRESENT ILLNESS: The patient is a 59-year-old mentally disabled female who was brought in by ambulance and IPD from the community for treatment after an intentional overdose on divalproex pills in a suicide attempt. She was then transferred to the telemetry floor and when she was considered medically stable, she was transferred to the BSU. Smita asserts that she does not have schizophrenia, that her mother had schizophrenia and that therefore she has been labeled with it and it has destroyed her life. She is from [place], came here by train and then a bus, but declines to say why exactly she came to [place] in particular. She states she has been hiking here but when she realized that no one would help her she became desperate and took an overdose. Smita states she is homeless. She gives a lot of incomplete information and is somewhat irrational and angry and frustrated. She states she has no one to help her and her family should take her in but they are not and she is frustrated by that as well. At this time, she is bizarre and inconsolable. She cries at times. She asserts that she is an exception to the rule. She is delusional regarding DSS. PAST PSYCHIATRIC HISTORY: She has a psychiatric history that she currently has outpatient care at [facility]. She has been hospitalized before although she will not say how many times. She had suicidal ideation. She overdosed on Depakote and required emergency medical care. She is homeless and her belongings have been gone through and she does not have access to weapons on her person. She declines to say if she has been on psychiatric meds before. She is not familiar with the word Abilify which she did take one 5 mg tablet of in order to help her become calm and to initiate therapy. 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 She challenged me to get an x- ray or a CT scan to prove that there is no appendix there. SOCIAL HISTORY: She is from the [facility]. She has a brother and brother-in - law. I did attempt to call her brother, Jeremy Root at [phone], but he was not available and has not returned my call. She has a Bachelor of Arts in communication. 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 She was partnered to her friend. She states she lost him, that he . He was romantic at one point in the past. FAMILY HISTORY: Her mother has schizophrenia. She says there is no other mental health history in her family. She states she has been labeled with that diagnosis because of her mom. SUBSTANCE ABUSE: When she arrived at the hospital, her alcohol level was 207. She does smoke cigarettes. REVIEW OF SYSTEMS: Smita reports being fatigued. She denies shortness of breath, heat or cold intolerance, chest pain or abdominal pain. She denies neurological symptoms. She denies fevers or changes in weight. PHYSICAL EXAMINATION GENERAL: Smita is sitting on her bed. She is in no acute distress. VITAL SIGNS: On 07/31/19 at 0800, temperature was 97.5, pulse 69, respirations 16, O2 sat on room air 100%, blood pressure 114/71. RESPIRATORY: Her lungs are clear to auscultation bilaterally with no accessory muscle use and good aeration. HEART: S1, S2 present. No murmur, rub, or gallop and regular. ABDOMEN: Soft, nontender with bowel sounds positive x4. EXTREMITIES: No cyanosis or edema. NEURO: She is alert, she is oriented x4. She moves all extremities equally. SKIN: Intact. LABORATORY DATA: Her hematology laboratory data is all within normal limits. Her chemistry data is less typical. Exceptions include chloride high at 114, glucose high at 123. Calcium low at 8.4. Total protein low at 5.4. Globulin low at 1.8. It should be noted that on 07/30/19 at 0151, her ammonia level was 365. On 07/30/19 at 0545, her ammonia level was 121. At 07/30/19 at 1203, her ammonia level had trended down to 80. We should note that her hemoglobin A1c is 5.5, triglycerides are 113, cholesterol is 290. LDL cholesterol 199. HDL cholesterol 68.8. MENTAL STATUS EXAMINATION: Smita is an averagely built woman with blond to graying hair that is tied up in a ponytail. She is somewhat slumped. Her eye contact is intermittent and she is notably uncomfortable. She is not always cooperative. She is irritable and occasionally hostile but is easily coaxed into being cooperative again. Her speech is rapid. Her volume is loud. She is dysthymic. Her affect is labile. Her thought processes include flight of ideas and racing thoughts. Thought content appears to contain delusions such as DSS not helping her, her being an exception to all the rules, and some persecutory thoughts as well. She states she is not homicidal. She states she is no longer suicidal. She is not hallucinating. Her insight is poor. Her judgement is fair. She is alert and oriented x4. DIAGNOSIS: Schizophrenia. IMPRESSION: Smita is a 59-year-old white woman who is diagnosed historically with schizophrenia and comes to [facility] after overdosing on Depakote, which she had been prescribed but no longer takes. She was transferred to the telemetry floor and then brought to the BSU following stabilization. PLAN: The patient is admitted to the adult behavioral health unit and placed on q.15-minute checks for her own safety. She is encouraged to participate in supportive milieu, individual, and group therapies. Estimated length of stay is 2 to 5 days. We will titrate medications to efficacy should she agree to take them. We will monitor for mood and thought content. Discharge planning will attempt to include family involvement, although so far they have not responded and outpatient providers in [place] if we can get permission to speak with them. LITA MATUTE, ERNST [id number]/[facility] #: [id number] LUDMILA
--- NOTE | 2019-08-01 21:28 | DS ---
CC: [facility]; Sonido Nix MD in [place], [place] * DISCHARGE SUMMARY: DATE OF ADMISSION: 07/30/19 DATE OF DISCHARGE: 08/01/19 PROVIDER: Lita Matute NP in Psychiatry. SUPERVISING PHYSICIAN: Dr. Cole Tobin.* (DICTATED BY LITA MATUTE NP ) DIAGNOSIS: Schizophrenia. CONDITION AT THE TIME OF DISCHARGE: Moderately improved, psychiatrically cleared, stable. Smita did not participate in groups. She was moderately social with peers. She is agreeable to discharge. She improved here psychiatrically. She tolerated the brief addition of Abilify, but declined to take it again. She took it only once. She is discharged to [facility]. MENTAL STATUS EXAM: At the time of discharge, Smita is calm, cooperative and makes good eye contact. She is alert and oriented x4. Her grooming is good. Her speech pace is normal. Thought processes are superficially logical. She is not psychotic. She is delusional. She denies AH, VH, SI, and HI. Insight and judgement are fair to poor. She states she will not be attending her appointment at [facility], but she is urged to see psychiatric providers including a therapist in the future. DISCHARGE INSTRUCTIONS TO THE PATIENT: A. Medications: Abilify 5 mg at bedtime. B. Diet is regular. C. Activities as tolerated. Smita is a smoker, but she has declined a referral to the [facility] Smokers' Quitline at this time. If she decides to access this free service in the future, she can contact the quitline toll free at [phone]. There are no studies pending at the time of discharge. D. Followup care: Smita has an appointment at [facility] on 08/02/19 at 10:45 with Katelynn Chisholm. She is referred to [facility] due to not having a place to live and she is also referred to Dr. Sonido Salgado on [address] [facility] [address] in [place], [place] for her PCP care. E. Disposition: Smita is discharged to the department of child welfare social worker to obtain temporary and emergency housing. F. Past substance abuse followup: Is not currently indicated. HOSPITAL COURSE: Part A: Chief complaint: "DSS won't help me." HPI: The patient is a 59-year-old mentally disabled female who was brought in by ambulance and IPD from the community for treatment after an intentional overdose on divalproex pills in a suicide attempt. She was then transferred to the telemetry floor and when she was considered medically stable, she was transferred to the BSU. Smita asserts that she does not have schizophrenia and that her mother has schizophrenia and that therefore, she has been labeled with it and it has destroyed her life. She is from [place], came here by train and then a bus, but declines to say why exactly she came to [place]. She states she has been hiking here, but when she realized that no one would help her, she became desperate and took an overdose. Smita states she is homeless. She gives a lot of incomplete information and is somewhat irrational and angry and frustrated. She states she has no one to help her and her family should take her in, but they are not going to and she is frustrated by that as well. At this time, she is bizarre and inconsolable. She cries at times. She asserts that she is an exception to the rule. She is delusional regarding DSS. Part B: Psychiatric treatment was rendered. Smita was admitted to the adult behavioral unit and placed on 15-minute checks for safety. Smita struggled to adapt to the unit. She spent time in bed stating she had leg pain and that she was not mentally ill and she did go to groups. Eventually, she interacted with peers well. I did start her on Abilify 5 mg which she took one time. She was not interested in taking it again as she asserts she is not mentally ill. She was upon admission taking Depakote tablets. This was not continued as she had overdosed upon them. Also it was not clear to me that this would address the psychosis that we were seeing, as she seemed not to be manic. She seemed delusional and angry. Smita was started on an atypical antipsychotic, which she then declined to continue. Nevertheless, we should note that her hemoglobin A1c was 5.5, triglycerides were 113, cholesterol 290, LDL cholesterol 199, HDL cholesterol 68.8. I attempted to call her brother, Jeremy Root, but he did not answer or return my call. No consults were entered for her. She is somewhat improved. She is more rational. She is easier to talk to at this time. She is not tearful. She is not full of rage. She is future oriented, but does not believe we have helped her in any way. LITA MATUTE, ERNST [id number]/[facility] #: [id number] LUDMILA
== END 2019-08-01 13:20 | disposition home or self-care (01) | DRG 885 ==
LOC: BSU 19:07
PROVIDERS: ADMIT Psychiatry & Neurology Psychiatry; ATTEND Psychiatry & Neurology Psychiatry
DX: F20.9 Schizophrenia, unspecified (principal); F17.210 Nicotine dependence, cigarettes, uncomplicated; Z59.0 Homelessness; Z28.21 Immunization not carried out because of patient refusal
CPT/HCPCS: 36415; 80061; 80164; 83036; 99222; 99238; A9270-GY